=== PATIENT | male | born 1995 | race American Indian/Alaskan Native ===

== ENCOUNTER 2020-12-09 08:39 | Emergency (ER) | payer BC, OTHER ==
[~2020-12-09] VITALS: Ht 188 cm; Wt 86.2 kg
== END 2020-12-09 10:00 | disposition home or self-care (01) ==
LOC: ED 08:39
DX: M62.830 Muscle spasm of back (principal); Z88.2 Allergy status to sulfonamides; Z88.0 Allergy status to penicillin
CPT/HCPCS: 99283

== ENCOUNTER 2024-04-08 20:16 | Emergency (ER) | payer OTHER ==
[~2024-04-08] VITALS: Ht 188 cm; Wt 85.5 kg
[2024-04-08] MEDS ORDERED: AMOXICILLIN 500 MG HOME.PACK PO ONE (23:00)
[2024-04-08] MEDS ORDERED: AMOXICILLIN500 MG PO (23:02)
[2024-04-08] MEDS ORDERED: AZITHROMYCIN 250 MG HOME.PACK PO ONE (23:15)
[2024-04-08 23:25] VITALS: BP 132/75
== END 2024-04-08 23:25 | disposition home or self-care (01) ==
LOC: ED 20:16
DX: M62.830 Muscle spasm of back (principal); Z88.2 Allergy status to sulfonamides; Z88.0 Allergy status to penicillin
CPT/HCPCS: 87651

== ENCOUNTER 2024-10-28 18:52 | Emergency (ER) | payer OTHER ==
[~2024-10-28] VITALS: Ht 188 cm; Wt 88.9 kg
[~2024-10-28 18:52] MED LIST: AMOXICILLIN500 MG PO
[2024-10-28] MEDS ORDERED: TRAMADOL HCL 50 MG TAB PO ONE (20:00)
[2024-10-28] MEDS ORDERED: HYDROCODON-ACE1 EA10 PO (21:29)
[2024-10-28] MEDS ORDERED: HYDROCODONE BIT/ACETAMINOPHEN 5/325 MG 1 TAB HOME.PACK PO ONE (21:30)
[2024-10-28 21:51] VITALS: BP 126/74
== END 2024-10-28 21:52 | disposition home or self-care (01) ==
LOC: ED 18:52
DX: S82.092A Other fracture of left patella, initial encounter for closed fracture (principal); M79.641 Pain in right hand; Z88.0 Allergy status to penicillin; Z88.2 Allergy status to sulfonamides; W01.0XXA Fall on same level from slipping, tripping and stumbling without subsequent striking against object, initial encounter
CPT/HCPCS: 73140; 73560; 73700; 99284-25; A9270